=== PATIENT | female | born 1985 | race African-American/Black ===

== ENCOUNTER 2022-05-03 11:34 | Emergency (ER) | payer MEDICAID ==
[~2022-05-03] VITALS: Ht 152.4 cm; Wt 68.0 kg
[2022-05-03 11:39] VITALS: BP 120/71
[2022-05-03] MEDS ORDERED: KETOROLAC 30MG/ML VIAL IM ONE (16:00)
[2022-05-03] MEDS ORDERED: IBUP-2029 MT (19:22)
== END 2022-05-03 19:39 | disposition home or self-care (01) ==
LOC: ER 11:34
DX: M25.571 Pain in right ankle and joints of right foot (principal); M54.50 Low back pain, unspecified; M25.551 Pain in right hip; Z90.49 Acquired absence of other specified parts of digestive tract; V43.62XA Car passenger injured in collision with other type car in traffic accident, initial encounter; Y93.89 Activity, other specified; Y92.488 Other paved roadways as the place of occurrence of the external cause
CPT/HCPCS: 72100; 73502; 73610; 81025; 96372; 99284; J1885